=== PATIENT | female | born 1965 | race Caucasian/White ===

== ENCOUNTER → 2016-08-10 | Outpatient (CLI) | payer SELFPAY ==
[~2016-08-10] MED LIST: AMOXICILLIN500 MG PO; FLAGYL500 MG; LISINOPRIL AND1 TA1 PO; MOBIC7.5 MG PO; NKHM; TOBRAMYCIN OP
== END | disposition home or self-care (01) ==
LOC: RAD 10:27
DX: J44.9 Chronic obstructive pulmonary disease, unspecified (principal); R05 Cough; R09.89 Other specified symptoms and signs involving the circulatory and respiratory systems

== ENCOUNTER 2018-08-04 11:54 | Inpatient (IN) | payer OTHER ==
[~2018-08-04] VITALS: Ht 160 cm; Wt 78.2 kg
--- NOTE | ~2018-08-04 | DS ---
[place], [place] DISCHARGE SUMMARY [id number] #: [id number] ROOM: 406 DOCTOR: MARCOS LEPE MD BIRTHDATE: [birth year] DOS: 08/05/2018 DISCHARGE DIAGNOSES: 1. Normal cardiac stress test. 2. Benign essential hypertension. 3. Mixed hyperlipidemia. The patient presented to [facility] with 3 episodes of substernal chest pain and aching sensation without shortness of breath or any other symptoms. The patient was admitted and ruled out for acute myocardial infarction. Serial cardiac enzymes and finally taken for a cardiac stress test, which has been reported to be normal. The patient to be discharged to home to follow up with her PCP as an outpatient. Benign essential hypertension with normal blood pressures on lisinopril. Mixed hyperlipidemia, treated with atorvastatin. DISCHARGE MANAGEMENT: Hydrochlorothiazide 12.5 mg a day, lisinopril 10 mg a day, Lipitor 20 mg a day. Follow up with PCP within a week. MARCOS LEPE MD CM:DISCHARG [id number] MARCOS LEPE MD 08/05/18 1635 interface
--- NOTE | ~2018-08-04 | EKG ---
[place], [place] ELECTROCARDIOGRAM REPORT NAME: SAMANTHA THRASHER UNIT #: [id number] ROOM: 406 DOCTOR: DAVINA DRAFT REPORT BIRTHDATE: [birth year] [facility] Test Date: 2018-08-04 Test Time: 17:56:28 Pat Name: SAMANTHA THRASHER Department: Room: 406 Gender: F Tar Leveler: Norma Clarke : 1965 Requested By: JAYNE JEREZ Order Number: [id number] Reading MD: Aldo Chavarria MD Measurements Intervals [place] Rate: 84 P: 44 IA: 152 QRS: 31 QRSD: 88 T: 53 QT: 353 QTc: 418 Interpretive Statements Sinus rhythm Nonspecific ST T changes Electronically Signed On 08-05-2018 6:46:22 PST by Aldo Chavarria MD CM:EKGRPT:ELECTROCARDIOGRAM REPORT [id number] JAYNE DUMAS DRAFT REPORT JAYNE JEREZ DO
--- NOTE | ~2018-08-04 | EKG ---
[place], [place] ELECTROCARDIOGRAM REPORT NAME: SAMANTHA THRASHER UNIT #: [id number] ROOM: 406 DOCTOR: DAVINA DRAFT REPORT BIRTHDATE: [birth year] [facility] Test Date: 2018-08-04 Test Time: 11:57:16 Pat Name: SAMANTHA THRASHER Department: Room: 406 Gender: F Care Management Coordinator: : 1965 Requested By: JAYNE JEREZ Order Number: [id number] Reading MD: Aldo Chavarria MD Measurements Intervals [place] Rate: 84 P: 48 VT: 150 QRS: 24 QRSD: 91 T: 48 QT: 355 QTc: 420 Interpretive Statements Sinus rhythm Low voltage, precordial leads No previous ECG available for comparison Electronically Signed On 08-05-2018 6:44:59 PST by Aldo Chavarria MD CM:EKGRPT:ELECTROCARDIOGRAM REPORT [id number] JAYNE DUMAS DRAFT REPORT JAYNE JEREZ DO
--- NOTE | ~2018-08-04 | EKG ---
[place], [place] ELECTROCARDIOGRAM REPORT NAME: SAMANTHA THRASHER UNIT #: [id number] ROOM: 406 DOCTOR: DAVINA DRAFT REPORT BIRTHDATE: [birth year] [facility] Test Date: 2018-08-04 Test Time: 15:06:37 Pat Name: SAMANTHA THRASHER Department: Room: 406 Gender: F Information Management Officer: Norma Clarke : 1965 Requested By: JAYNE JEREZ Order Number: [id number] Reading MD: Aldo Chavarria MD Measurements Intervals [place] Rate: 77 P: 54 RI: 136 QRS: 31 QRSD: 91 T: 41 QT: 384 QTc: 435 Interpretive Statements Sinus rhythm Nonspecific ST T changes Electronically Signed On 08-05-2018 6:45:43 PST by Aldo Chavarria MD CM:EKGRPT:ELECTROCARDIOGRAM REPORT [id number] JAYNE DUMAS DRAFT REPORT JAYNE JEREZ DO
--- NOTE | ~2018-08-04 | WRIGHTHP ---
[place], [place] PATIENT HISTORY AND PHYSICAL EXAM [id number] UN[facility] #: [id number] ROOM: 406 DOCTOR: MARCOS LEPE MD BIRTHDATE: [birth year] DOS: 08/04/2018 HISTORY OF PRESENT ILLNESS: 1. The patient is a 53-year-old female with a past medical history of nicotine smoke dependence. 2. Hypertension. 3. Mixed hyperlipidemia. The patient presented to the Emergency Department with 3 recurrent episodes of substernal chest pain, which was aching in sensation and not accompanied by shortness of breath or nausea or diaphoresis. The episodes lasted about 15 minutes, so the patient took some aspirin, which helped with the pain and she came into the Emergency Department. The patient's cardiac enzymes were found to be negative initially and she was pain free and recommended for admission and further management. The patient seems to be feeling better and has no chest pains at present time. No dizziness or fainting episodes. No GI or urinary symptoms. REVIEW OF SYSTEMS: CARDIOVASCULAR: Recurrent complaints of chest pains, 3 episodes. GASTROINTESTINAL: No nausea, vomiting, diarrhea, constipation. LUNGS: No wheezing or shortness of breath, but the patient has history of smoking cigarettes. FAMILY HISTORY: Noncontributory. SOCIAL HISTORY: Smokes 1-1/2 pack of cigarettes a day for the last 30 years. Denies any alcohol or drug abuse. HOME MEDICATIONS: Lisinopril and Lipitor. ALLERGIES: No known drug allergies. PHYSICAL EXAMINATION: GENERAL: Alert, oriented x 3, in no visible distress. HEENT AND NECK: Extraocular movements are intact. Sclerae are anicteric. Oral mucosa is moist and clean. No obvious facial weakness. Neck is supple without any lymphadenopathy. No thyromegaly. No JVD. No carotid arterial bruits. LUNGS: Clear to auscultation. No wheezing. No rhonchi. CARDIOVASCULAR SYSTEM: Heart rate is regular in rate and rhythm. S1 and S2 normally audible. No significant murmur or any other abnormal cardiac sounds. ABDOMEN: Soft, nontender. No obvious organomegaly. Bowel sounds are present. No obvious herniation. EXTREMITIES: Without significant cyanosis or edema. Warm to touch. CENTRAL NERVOUS SYSTEM: Alert and oriented x 3. Cranial nerves II-XII are intact. Speech is normal. The patient is able to move all extremities. Normal muscle strength. Deep tendon reflexes are equal on both sides. Plantars were downgoing. IMPRESSION AND PLAN: 1. Chest pains from uncertain etiology. Two set of cardiac enzymes have been [place], [place] PATIENT HISTORY AND PHYSICAL EXAM NAME: SAMANTHA THRASHER UNIT #: [id number] ROOM: [facility] DOCTOR: MARCOS LEPE MD BIRTHDATE: [birth year] negative and if they are all negative, then I will take up for cardiac stress testing tomorrow for further evaluation. The patient has been given aspirin. 2. Mixed hyperlipidemia, treated appropriately with atorvastatin, which was continued. 3. Benign essential hypertension. Blood pressures are treated and controlled. The patient remains on lisinopril and hydrochlorothiazide. 4. Nicotine smoke dependence, 50 pack years of smoking. The patient has been encouraged to stop and bad effect of cigarette smoke on her health has been explained to her. MARCOS LEPE MD CM:HISPHYS:PATIENT HISTORY AND PHYSICAL EXAMINATION [phone] MARCOS LEPE MD 08/04/18 1828 interface
--- NOTE | ~2018-08-04 | ST ---
[place], [place] EXERCISE STRESS TEST REPORT NAME: SAMANTHA THRASHER UNIT #: [id number] ROOM: 406 DOCTOR: MARCOS LEPE MD BIRTHDATE: [birth year] DOS: 08/05/2018 TREADMILL TEST WITH CARDIOLITE REPORT The patient is a 53-year-old female weighing 172 pounds, admitted to [facility] for chest pains. Cardiac enzymes were negative. The patient was tested under standard Kirt protocol and she exercised for a total of 8 minutes and 30 seconds and the test was stopped because the patient had reached the targeted heart rate. Blood pressures ranged between 108/60 to 134/80, heart rate ranged between 60 beats per minute to 124 beats per minute. Baseline EKG showed normal sinus rhythm at the heart rate of 60 beats per minute, normal cardiac axis, no acute ST-T abnormality. Normal cardiac axis. During the exercise and recovery phase, the patient did not develop any significant EKG abnormality compatible with myocardial ischemia, no angina symptoms. No cardiac dysrhythmias. The patient was injected with Cardiolite once she reached 85% of the PMHR. IMPRESSION: Normal EKG part of the treadmill Cardiolite stress test at 85% PMHR. Cardiolite results will be reported by Cardiology later today. MARCOS LEPE MD CM:STRESS:EXERCISE STRESS TEST REPORT 2 MARCOS LEPE MD
[2018-08-04 11:56] VITALS: BP 136/74
[2018-08-04 12:17] LABS: BASO % 0.6 % (0.0-1.0); EOS # 0.1 10*3/uL (0.0-0.4); EOS % 1.5 % (1.0-4.0); HEMOGLOBIN 15.5 g/dl (12.0-16.0); LYMPH # 1.9 10*3/uL (1.3-4.4); LYMPH % 26.5 % (27.0-41.0); MEAN CELL VOLUME 93.4 fl (81.0-99.0); MEAN CORPUSCULAR HGB 32.2 pg (27.0-31.0); MEAN CORPUSCULAR HGB CONC 34.4 g/dl (33.0-37.0); MEAN PLATELET VOLUME 9.9 fl (9.6-12.3); MONO # 0.4 10*3/uL (0.1-1.0); MONO % 4.9 % (3.0-9.0); NEUT # 4.8 10*3/uL (2.3-7.9); NEUT % 66.2 % (47.0-73.0); PLATELET COUNT AUTOMATED 217 10*3/uL (130-400); RED BLOOD COUNT 4.82 10*6/uL (4.10-5.10); RED CELL DISTRI WIDTH 13.3 % (0-14.5); WHITE BLOOD COUNT 7.2 10*3/uL (4.8-10.8)
[2018-08-04] MEDS ORDERED: ZESTORETIC 10-1 EACH PO (12:17)
[2018-08-04] MEDS ORDERED: ATORVASTATIN CA20 M1 PO (12:17)
--- NOTE | 2018-08-04 12:27 | NUR ---
LACTIC ACID 2.4 CALLED CRITICAL AT THIS TIME.
[2018-08-04 12:31] LABS: ACT PARTIAL THROMBO TIME 26.7 SECONDS (20.8-31.5); INTERNATIONAL NORM RATIO 0.9 (2.0-3.5)
[2018-08-04 12:33] LABS: LIPASE 90 U/L (73-393)
[2018-08-04 12:35] LABS: ALBUMIN 3.5 gm/dl (3.1-4.5); ALKALINE PHOSPHATASE 85 U/L (45-117); BUN 8 mg/dl (7-24); CHLORIDE 105 mmol/L (98-107); CREATININE 0.58 mg/dL (0.55-1.02); POTASSIUM 3.4 mmol/L (3.5-5.1); SGOT/AST 19 IU/L (3-35); SGPT/ALT 36 U/L (12-78); SODIUM 139 mmol/L (136-145); TOTAL PROTEIN 7.4 gm/dL (6.4-8.2)
[2018-08-04 12:39] LABS: TROPONIN I < 0.015 ng/ml (<0.045)
--- NOTE | 2018-08-04 13:24 | NUR ---
PT W/O DISTRESS NOTED POSITIONED FOR COMFORT AND NO COMPLAINTS VOICED.
[2018-08-04 13:27] VITALS: BP 119/66
[2018-08-04 13:30] VITALS: BP 137/81
--- NOTE | 2018-08-04 13:30 | NUR ---
A 53, admitted to , under the services of Dr. SHERLEY SANDERSON,MARCOS Posadas with a diagnosis of CHEST PAIN, RULE OUT ACUTE WI. Chief complaint is CHEST PAIN. Patient arrived via bed from ER. Monitor applied. Initial assessment completed. Vital signs taken and recorded. DR. SHERLEY SANDERSON,MARCOS Posadas notified of admission to the unit. Orders received. See assessment for past medical history, medications and allergies. Patient and/or family oriented to unit. [facility] visitation policy reviewed. Clothing/patient valuable form completed. ASIF BARONE
--- NOTE | 2018-08-04 13:45 | NUR ---
MED REC UPDATED VIA PATIENT RECALL.
--- NOTE | 2018-08-04 14:38 | NUR ---
NEW ORDERS RECEIVED FROM DR LEPE
[2018-08-04 16:00] VITALS: BP 118/72
[2018-08-04 20:00] VITALS: BP 98/62
--- NOTE | 2018-08-04 20:15 | NUR ---
RESTING IN BED WITH NO DISTRESS NOTED. RESPIRATIONS EASY. LUNGS DIMINISHED, CLEAR PULSE OX 96% RA. NON-PRODUCTIVE SMOKERS COUGH. DENIES CHEST PAIN. CALL LIGHT WITHIN REACH. NO VOICED COMPLAINTS
--- NOTE | 2018-08-04 21:00 | NUR ---
24 HR chart check completed.
--- NOTE | 2018-08-04 21:00 | NUR ---
DR LEPE HERE TO SEE PATIENT AND DISCUSS PLAN OF CARE.
[2018-08-05] VITALS: BP 120/68
--- NOTE | 2018-08-05 | NUR ---
SLEEPING. NO DISTRESS NOTED. RESPIRATIONS EASY. VSS. CALL LIGHT WITHIN REACH.
--- NOTE | 2018-08-05 06:00 | NUR ---
SLEPT THROUGHOUT NIGHT WITH NO DISTRESS NOTED. RESPIRATIONS EASY. NO C/O CHEST PAIN. NPO STATUS MAINTAINED FOR STRESS TEST THIS AM. CALL LIGHT WITHIN REACH. NO VOICED COMPLAINTS THIS SHIFT
[2018-08-05 08:00] VITALS: BP 110/70
--- NOTE | 2018-08-05 08:45 | NUR ---
INFORMED SIGNED CONSENT OBTAINED FOR CGXT WITH DR LEPE. RESTING EKG NSR HR 60 BP 112/70 IN SUPINE POSITION, STANDING HR 66 BP 114/60. PT COMPLETED 8:30 OF A AMMON PROTOCOL WITH PT COMPLETING 2:30 OF STAGE III AT 3.4 MPH AND A 14% GRADE. NO ARRHYTHMIAS OR ST CHANGES NOTED. PT REACHED A PEAK HR OF 143 WHICH REPRESENTS 85% OF PREDICTED MAXIMUM AND A PEAK BP OF 132/70. TEST TERMINATED DUE TO FATIGUE. NO ARRHYTHMIAS OR ST CHANGES NOTED. LAST RECOVERY HR OF 96 BP 108/60. PT IN STABLE CONDITION AWAITING NUCLEAR IMAGES.
--- NOTE | 2018-08-05 09:00 | NUR ---
Release Of Information Specialist in to see patient. She is currently not in her room. Will follow up at a later time.
[2018-08-05 12:00] VITALS: BP 129/74
--- NOTE | 2018-08-05 13:50 | NUR ---
Fern Picker in to talk to patient. Patient states lives at home with her . There are 2 steps in the home. Physician: Dr. Pee Buenrostro [facility] services: none Patient's level of ADLs: INDEPENDENT Patient has working utilities: yes DME: none Follow-up physician's appointment after d/c: she prefers to make her own follow up appt after discharge Does patient want to access PORTAL?: no Discharge plan discussed with patient. She lives at home with her . She is independent in her ADLs and ambulation. Discussed home health care services and she denies any home needs at this time. When medically stable she will be discharged to home. BEATRICE LOUISE
--- NOTE | 2018-08-05 15:10 | NUR ---
[facility] Discharge instructions reviewed with patient/family. Patient receptive and verbalizes understanding. Follow-up care arranged. Written instructions given to patient/family. NATALIYA PANIAGUA
== END 2018-08-05 15:10 | disposition home or self-care (01) | DRG 313 ==
LOC: ED 11:54 → EDHOLD 13:01 → 4E 13:08
PROVIDERS: Emergency Medicine; ADMIT Internal Medicine
PROC: 4A02XM4 Measurement of Cardiac Total Activity, External Approach (ICD-10-PCS; principal; 2018-08-05)
DX: R07.9 Chest pain, unspecified (principal); I10 Essential (primary) hypertension; E78.2 Mixed hyperlipidemia; Z82.49 Family history of ischemic heart disease and other diseases of the circulatory system; Z83.3 Family history of diabetes mellitus; F17.210 Nicotine dependence, cigarettes, uncomplicated; E78.5 Hyperlipidemia, unspecified

== ENCOUNTER → 2018-08-14 | Outpatient (CLI) | payer BC ==
[~2018-08-14] MED LIST changes: +ATORVASTATIN CA20 M1 PO; +ZESTORETIC 10-1 EACH PO
== END | disposition home or self-care (01) ==
LOC: MAMMO 07:20
DX: Z12.31 Encounter for screening mammogram for malignant neoplasm of breast (principal)

== ENCOUNTER 2018-12-15 16:56 | Emergency (ER) | payer BC ==
[~2018-12-15] VITALS: Ht 160 cm; Wt 79.4 kg
[2018-12-15] MEDS ORDERED: CITALOPRAM HYDR10 MG PO (16:58)
[2018-12-15 17:16] LABS: BASO % 0.3 % (0.0-1.0); EOS # 0.1 10*3/uL (0.0-0.4); HEMATOCRIT 44.3 % (37.0-47.0); HEMOGLOBIN 15.4 g/dl (12.0-16.0); LYMPH # 1.2 10*3/uL (1.3-4.4); LYMPH % 19.3 % (27.0-41.0); MEAN CELL VOLUME 93.7 fl (81.0-99.0); MEAN CORPUSCULAR HGB 32.6 pg (27.0-31.0); MEAN CORPUSCULAR HGB CONC 34.8 g/dl (33.0-37.0); MEAN PLATELET VOLUME 9.8 fl (9.6-12.3); MONO # 0.6 10*3/uL (0.1-1.0); MONO % 10.3 % (3.0-9.0); NEUT # 4.3 10*3/uL (2.3-7.9); NEUT % 68.8 % (47.0-73.0); PLATELET COUNT AUTOMATED 170 10*3/uL (130-400); RED BLOOD COUNT 4.73 10*6/uL (4.10-5.10); RED CELL DISTRI WIDTH 13.8 % (0-14.5); WHITE BLOOD COUNT 6.2 10*3/uL (4.8-10.8)
[2018-12-15 17:32] LABS: ALBUMIN 3.6 gm/dl (3.1-4.5); ALKALINE PHOSPHATASE 83 U/L (45-117); BUN 8 mg/dl (7-24); CHLORIDE 107 mmol/L (98-107); CREATININE 0.58 mg/dL (0.55-1.02); LIPASE 87 U/L (73-393); POTASSIUM 3.4 mmol/L (3.5-5.1); SGOT/AST 17 IU/L (3-35); SGPT/ALT 26 U/L (12-78); SODIUM 140 mmol/L (136-145); TOTAL PROTEIN 7.3 gm/dL (6.4-8.2)
[2018-12-15 17:37] LABS: BILIRUBIN NEGATIVE (NEGATIVE); BLOOD 2+ (NEGATIVE); CLARITY CLEAR (CLEAR); COLOR YELLOW (YELLOW); GLUCOSE NEGATIVE (NEGATIVE); KETONE NEGATIVE (NEGATIVE); LEUKO ESTERASE NEGATIVE (NEGATIVE); NITRITE NEGATIVE (NEGATIVE); SPECIFIC GRAVITY <= 1.005 (1.005-1.030); UROBILINOGEN 0.2 E.U./dl (0.2-1.0)
[2018-12-15 17:48] LABS: BACTERIA 1+; WBC 0-2 wbc/hpf (0-5)
== END 2018-12-15 18:11 | disposition home or self-care (01) ==
LOC: ED 16:56
PROVIDERS: Nurse Practitioner Family
DX: B34.9 Viral infection, unspecified (principal); R19.7 Diarrhea, unspecified; R03.0 Elevated blood-pressure reading, without diagnosis of hypertension; F17.200 Nicotine dependence, unspecified, uncomplicated; Z79.899 Other long term (current) drug therapy

== ENCOUNTER → 2018-12-27 | Outpatient (CLI) | payer BC ==
[~2018-12-27] MED LIST changes: +CITALOPRAM HYDR10 MG PO
[2018-12-27 08:12] LABS: ALBUMIN 3.8 gm/dl (3.1-4.5); ALKALINE PHOSPHATASE 93 U/L (45-117); BUN 9 mg/dl (7-24); CHLORIDE 103 mmol/L (98-107); CHOLESTEROL 198 mg/dL (<200); CPK 57 U/L (26-192); CREATININE 0.57 mg/dL (0.55-1.02); HDL CHOLESTEROL 47 mg/dl (40-60); LDL CHOLESTEROL 115 mg/dL (9-159); POTASSIUM 3.4 mmol/L (3.5-5.1); SGOT/AST 23 IU/L (3-35); SGPT/ALT 25 U/L (12-78); SODIUM 138 mmol/L (136-145); TOTAL PROTEIN 7.4 gm/dL (6.4-8.2); TRIGLYCERIDES 180 mg/dl (<150); VLDL CHOLESTEROL 36 mg/dL (6-40)
== END | disposition home or self-care (01) ==
LOC: LAB 06:20
PROVIDERS: Family Medicine
DX: E78.00 Pure hypercholesterolemia, unspecified (principal); I10 Essential (primary) hypertension; E55.9 Vitamin D deficiency, unspecified

== ENCOUNTER 2019-04-20 09:35 | Emergency (ER) | payer BC ==
[~2019-04-20] VITALS: Ht 160 cm; Wt 86.2 kg
[2019-04-20] MEDS ORDERED: NAPROSYN500 MG PO (11:12)
== END 2019-04-20 11:28 | disposition home or self-care (01) ==
LOC: ED 09:35
DX: S70.01XA Contusion of right hip, initial encounter (principal); Z79.899 Other long term (current) drug therapy; W19.XXXA Unspecified fall, initial encounter; Y93.89 Activity, other specified; Y92.89 Other specified places as the place of occurrence of the external cause; Y99.8 Other external cause status

== ENCOUNTER → 2019-06-25 | Outpatient (CLI) | payer BC ==
[~2019-06-25] MED LIST changes: +NAPROSYN500 MG PO
[2019-06-25 08:14] LABS: HEMATOCRIT 40.8 % (37.0-47.0); HEMOGLOBIN 13.8 g/dl (12.0-16.0); MEAN CELL VOLUME 95.1 fl (81.0-99.0); MEAN CORPUSCULAR HGB 32.2 pg (27.0-31.0); MEAN CORPUSCULAR HGB CONC 33.8 g/dl (33.0-37.0); MEAN PLATELET VOLUME 9.8 fl (9.6-12.3); RED BLOOD COUNT 4.29 10*6/uL (4.10-5.10); RED CELL DISTRI WIDTH 13.9 % (0-14.5); WHITE BLOOD COUNT 5.6 10*3/uL (4.8-10.8)
[2019-06-25 08:48] LABS: ALBUMIN 3.8 gm/dl (3.1-4.5); ALKALINE PHOSPHATASE 70 U/L (45-117); BUN 12 mg/dl (7-24); CHLORIDE 109 mmol/L (98-107); CHOLESTEROL 227 mg/dL (<200); CREATININE 0.51 mg/dL (0.55-1.02); HDL CHOLESTEROL 54 mg/dl (40-60); LDL CHOLESTEROL 151 mg/dL (9-159); POTASSIUM 3.7 mmol/L (3.5-5.1); SGOT/AST 23 IU/L (3-35); SGPT/ALT 31 U/L (12-78); SODIUM 139 mmol/L (136-145); TOTAL PROTEIN 7.3 gm/dL (6.4-8.2); TRIGLYCERIDES 110 mg/dl (<150); VLDL CHOLESTEROL 22 mg/dL (6-40)
== END | disposition home or self-care (01) ==
LOC: LAB 07:43
PROVIDERS: Family Medicine
DX: E78.00 Pure hypercholesterolemia, unspecified (principal); I10 Essential (primary) hypertension; E55.9 Vitamin D deficiency, unspecified; M19.90 Unspecified osteoarthritis, unspecified site

== ENCOUNTER 2019-08-11 06:50 | Emergency (ER) | payer BC ==
[~2019-08-11] VITALS: Ht 160 cm; Wt 90.7 kg
[2019-08-11] MEDS ORDERED: TAMIFLU 75MG CA75 MG PO (08:04)
== END 2019-08-11 08:13 | disposition home or self-care (01) ==
LOC: ED 06:50
DX: J10.1 Influenza due to other identified influenza virus with other respiratory manifestations (principal); I10 Essential (primary) hypertension; F17.200 Nicotine dependence, unspecified, uncomplicated; Z79.899 Other long term (current) drug therapy

== ENCOUNTER 2019-08-18 06:16 | Emergency (ER) | payer OTHER, BC ==
[~2019-08-18] VITALS: Ht 160 cm; Wt 90.7 kg
[~2019-08-18 06:16] MED LIST changes: +TAMIFLU 75MG CA75 MG PO
== END 2019-08-18 07:45 | disposition home or self-care (01) ==
LOC: ED 06:16
DX: S00.01XA Abrasion of scalp, initial encounter (principal); I10 Essential (primary) hypertension; Z79.899 Other long term (current) drug therapy; W22.8XXA Striking against or struck by other objects, initial encounter; Y93.89 Activity, other specified; Y92.89 Other specified places as the place of occurrence of the external cause; Y99.0 Civilian activity done for income or pay

== ENCOUNTER → 2019-10-01 | Outpatient (CLI) | payer BC ==
[2019-10-01 07:22] LABS: CHLORIDE 109 mmol/L (98-107); POTASSIUM 3.7 mmol/L (3.5-5.1); SODIUM 141 mmol/L (136-145)
[2019-10-01 07:35] LABS: ALBUMIN 3.4 gm/dl (3.1-4.5); ALKALINE PHOSPHATASE 78 U/L (45-117); BUN 18 mg/dl (7-24); CHOLESTEROL 159 mg/dL (<200); CPK 57 U/L (26-192); CREATININE 0.64 mg/dL (0.55-1.02); HDL CHOLESTEROL 43 mg/dl (40-60); LDL CHOLESTEROL 88 mg/dL (9-159); SGOT/AST 19 IU/L (3-35); SGPT/ALT 31 U/L (12-78); TOTAL PROTEIN 6.4 gm/dL (6.4-8.2); TRIGLYCERIDES 138 mg/dl (<150); VLDL CHOLESTEROL 28 mg/dL (6-40)
== END | disposition home or self-care (01) ==
LOC: LAB 06:11
PROVIDERS: Family Medicine
DX: E78.00 Pure hypercholesterolemia, unspecified (principal); I10 Essential (primary) hypertension

== ENCOUNTER → 2019-12-17 | Outpatient (CLI) | payer SELFPAY | END | disposition home or self-care (01) | LOC: MAMMO 10-30 09:30 | DX: Z12.31 Encounter for screening mammogram for malignant neoplasm of breast (principal) ==

== ENCOUNTER → 2020-03-09 | Outpatient (CLI) | payer BC | END | disposition home or self-care (01) | LOC: COVID19 00:15 | DX: Z20.828 Contact with and (suspected) exposure to other viral communicable diseases (principal); R51 Headache; R50.9 Fever, unspecified ==

== ENCOUNTER → 2022-03-27 | Outpatient (CLI) | payer SELFPAY ==
[2022-03-27 11:34] LABS: HEMATOCRIT 46.2 % (37.0-47.0); MEAN CELL VOLUME 91.3 fl (81.0-99.0); MEAN CORPUSCULAR HGB 31.2 pg (27.0-31.0); MEAN CORPUSCULAR HGB CONC 34.2 g/dl (33.0-37.0); MEAN PLATELET VOLUME 10.1 fl (9.6-12.3); RED BLOOD COUNT 5.06 10*6/uL (4.10-5.10); RED CELL DISTRI WIDTH 13.8 % (0-14.5); WHITE BLOOD COUNT 7.7 10*3/uL (4.8-10.8)
[2022-03-27 13:18] LABS: BUN 11 mg/dl (7-24); CHLORIDE 103 mmol/L (98-107); POTASSIUM 3.6 mmol/L (3.5-5.1); SODIUM 138 mmol/L (136-145)
[2022-03-27 13:22] LABS: ALKALINE PHOSPHATASE 96 U/L (45-117); CREATININE 0.58 mg/dL (0.55-1.02); SGOT/AST 13 IU/L (3-35); SGPT/ALT 37 U/L (12-78); TOTAL PROTEIN 7.5 gm/dL (6.4-8.2)
== END | disposition home or self-care (01) ==
LOC: LAB 11:05
PROVIDERS: ATTEND Family Medicine
DX: I10 Essential (primary) hypertension (principal); R60.9 Edema, unspecified

== ENCOUNTER 2024-07-24 10:46 | Inpatient (IN) | payer SELFPAY ==
[~2024-07-24] VITALS: Ht 160 cm; Wt 99.8 kg
[2024-07-24 11:05] VITALS: BP 151/93
[2024-07-24] MEDS ORDERED: FUROSEMIDE40 MG PO (11:07)
[2024-07-24] MEDS ORDERED: ZESTORETIC 20-1 EACH PO (11:08)
[2024-07-24 11:45] LABS: BASO % 0.4 % (0.0-1.0); EOS # 0.1 10*3/uL (0.0-0.4); EOS % 1.2 % (1.0-4.0); HEMATOCRIT 48.5 % (37.0-47.0); MEAN CELL VOLUME 90.8 fl (81.0-99.0); MEAN CORPUSCULAR HGB 31.3 pg (27.0-31.0); MEAN CORPUSCULAR HGB CONC 34.4 g/dl (33.0-37.0); MEAN PLATELET VOLUME 11.2 fl (9.6-12.3); MONO # 0.6 10*3/uL (0.1-1.0); MONO % 7.4 % (3.0-9.0); NEUT # 4.8 10*3/uL (2.3-7.9); NEUT % 63.1 % (47.0-73.0); PLATELET COUNT AUTOMATED 189 10*3/uL (130-400); RED BLOOD COUNT 5.34 10*6/uL (4.10-5.10); RED CELL DISTRI WIDTH 13.2 % (0-14.5); WHITE BLOOD COUNT 7.7 10*3/uL (4.8-10.8)
[2024-07-24 12:06] LABS: ALKALINE PHOSPHATASE 150 U/L (46-116); BUN 8 mg/dl (9-23); CHLORIDE 103 mmol/L (98-107); POTASSIUM 3.1 mmol/L (3.4-5.1); SGPT/ALT 90 U/L (5-49); TOTAL PROTEIN 6.4 gm/dL (6.0-8.0)
[2024-07-24] MEDS ORDERED: IOHEXOL 350 MG/ML 100 ML VIAL IV ONE (12:20)
[2024-07-24] MEDS ORDERED: SODIUM CHLORIDE 0.9% 100 ML BAG IV ONE (12:20)
[2024-07-24 13:40] VITALS: BP 137/95
[2024-07-24] MEDS ORDERED: FUROSEMIDE 20 MG/2 ML VIAL IV ONE (13:40)
[2024-07-24] MEDS ORDERED: POTASSIUM CHLORIDE 20 MEQ TAB PO ONE (13:40)
[2024-07-24 15:20] VITALS: BP 128/88
[2024-07-24] MEDS ORDERED: DEXTROSE 10 % IN WATER 250 ML IV PRN (15:25)
[2024-07-24 16:00] VITALS: BP 120/76
[2024-07-24] MEDS ORDERED: INSULIN REGULAR, HUMAN 1 UNIT/0.01 ML SC SCH (16:30)
[2024-07-24] MEDS ORDERED: FUROSEMIDE 40 MG TAB PO SCH (18:00)
[2024-07-24 20:00] VITALS: BP 115/90
[2024-07-25] VITALS: BP 123/87
[2024-07-25 06:56] LABS: BUN 11 mg/dl (9-23); CHLORIDE 103 mmol/L (98-107); CHOLESTEROL 179 mg/dL (<200); LDL CHOLESTEROL 95 mg/dL (9-159); POTASSIUM 2.9 mmol/L (3.4-5.1); TRIGLYCERIDES 246 mg/dl (<150)
[2024-07-25 08:00] VITALS: BP 112/74
[2024-07-25] MEDS ORDERED: POTASSIUM CHLORIDE 20 MEQ TAB PO SCH ×2 (08:05→12:00)
[2024-07-25] MEDS ORDERED: Regadenoson 0.4 MG/5 ML SYR IV ONE (08:43)
[2024-07-25] MEDS ORDERED: EMPAGLIFLOZIN 10 MG TABLET PO SCH (10:00)
[2024-07-25] MEDS ORDERED: METOPROLOL SUCCINATE XR 25 MG TAB PO SCH (10:00)
[2024-07-25] MEDS ORDERED: FUROSEMIDE 40 MG/4 ML VIAL IV SCH (10:00)
[2024-07-25] MEDS ORDERED: FUROSEMIDE 20 MG/2 ML VIAL IV SCH (10:00)
[2024-07-25] MEDS ORDERED: ATORVASTATIN CALCIUM 40 MG TABLET PO SCH (10:00)
[2024-07-25] MEDS ORDERED: POTASSIUM CHLORIDE 10 MEQ TAB PO SCH (10:00)
[2024-07-25] MEDS ORDERED: LISINOPRIL 20 MG TAB PO SCH (10:00)
[2024-07-25] MEDS ORDERED: FUROSEMIDE 40 MG IV SCH (10:00)
[2024-07-25 11:07] LABS: HEMOGOLBIN A1C >15.5 % (4.8-5.6)
[2024-07-25 12:00] VITALS: BP 117/80
[2024-07-25] MEDS ORDERED: ASPIRIN ENTERIC COATED 81 MG TAB PO SCH (15:10)
[2024-07-25] MEDS ORDERED: SPIRONOLACTONE 25 MG TAB PO SCH (15:10)
[2024-07-25 16:00] VITALS: BP 105/64
[2024-07-25 20:00] VITALS: BP 97/62
[2024-07-25 21:07] VITALS: BP 101/70
[2024-07-26] VITALS: BP 97/66
[2024-07-26 00:34] VITALS: BP 104/58
[2024-07-26 06:27] LABS: BASO # 0.1 10*3/uL (0.0-0.1); BASO % 0.7 % (0.0-1.0); EOS # 0.2 10*3/uL (0.0-0.4); EOS % 2.2 % (1.0-4.0); HEMATOCRIT 49.3 % (37.0-47.0); MEAN CELL VOLUME 92.7 fl (81.0-99.0); MEAN CORPUSCULAR HGB CONC 33.5 g/dl (33.0-37.0); MEAN PLATELET VOLUME 11.7 fl (9.6-12.3); MONO # 0.5 10*3/uL (0.1-1.0); MONO % 7.3 % (3.0-9.0); NEUT # 3.7 10*3/uL (2.3-7.9); NEUT % 53.3 % (47.0-73.0); PLATELET COUNT AUTOMATED 206 10*3/uL (130-400); RED BLOOD COUNT 5.32 10*6/uL (4.10-5.10); RED CELL DISTRI WIDTH 13.5 % (0-14.5); WHITE BLOOD COUNT 6.9 10*3/uL (4.8-10.8)
[2024-07-26 06:33] LABS: BUN 15 mg/dl (9-23); CHLORIDE 106 mmol/L (98-107)
[2024-07-26 06:40] LABS: POTASSIUM 3.9 mmol/L (3.4-5.1)
[2024-07-26 08:00] VITALS: BP 123/70
[2024-07-26 12:00] VITALS: BP 124/73
[2024-07-26 16:00] VITALS: BP 109/70
[2024-07-26 20:00] VITALS: BP 105/75
[2024-07-27] VITALS: BP 105/75
[2024-07-27 06:34] LABS: BASO # 0.1 10*3/uL (0.0-0.1); BASO % 0.7 % (0.0-1.0); EOS # 0.1 10*3/uL (0.0-0.4); EOS % 1.8 % (1.0-4.0); HEMATOCRIT 47.8 % (37.0-47.0); MEAN CELL VOLUME 94.3 fl (81.0-99.0); MEAN CORPUSCULAR HGB 31.4 pg (27.0-31.0); MEAN CORPUSCULAR HGB CONC 33.3 g/dl (33.0-37.0); MEAN PLATELET VOLUME 11.6 fl (9.6-12.3); MONO # 0.6 10*3/uL (0.1-1.0); MONO % 7.7 % (3.0-9.0); NEUT # 4.1 10*3/uL (2.3-7.9); NEUT % 56.7 % (47.0-73.0); PLATELET COUNT AUTOMATED 189 10*3/uL (130-400); RED BLOOD COUNT 5.07 10*6/uL (4.10-5.10); RED CELL DISTRI WIDTH 13.7 % (0-14.5); WHITE BLOOD COUNT 7.3 10*3/uL (4.8-10.8)
[2024-07-27 06:35] LABS: BUN 16 mg/dl (9-23); CHLORIDE 106 mmol/L (98-107); POTASSIUM 3.9 mmol/L (3.4-5.1)
[2024-07-27 08:00] VITALS: BP 106/73
[2024-07-27] MEDS ORDERED: SACUBITRIL/VALSARTAN 24 MG-26 MG TABLET PO SCH (10:00)
[2024-07-27 12:00] VITALS: BP 107/66
[2024-07-27 16:00] VITALS: BP 87/50
[2024-07-27] MEDS ORDERED: METFORMIN HYDROCHLORIDE PO SCH (16:30)
[2024-07-27] MEDS ORDERED: Melatonin 5 MG TABLET PO PRN (16:40)
[2024-07-27 20:00] VITALS: BP 107/72
[2024-07-27] MEDS ORDERED: OMEPRAZOLE 20 MG CAP PO ONE (21:55)
[2024-07-28] VITALS: BP 110/68
== END 2024-07-28 05:32 | disposition short-term general hospital (02) | DRG 291 ==
LOC: ED 10:46 → 4E 14:46 → EDHOLD 14:46 → 4E 15:43
PROVIDERS: Nurse Practitioner Family; ADMIT Internal Medicine; ATTEND Internal Medicine
DX: I11.0 Hypertensive heart disease with heart failure (principal); I50.43 Acute on chronic combined systolic (congestive) and diastolic (congestive) heart failure; Z68.41 Body mass index [BMI] 40.0-44.9, adult; E87.6 Hypokalemia; E66.01 Morbid (severe) obesity due to excess calories; D75.1 Secondary polycythemia; G47.33 Obstructive sleep apnea (adult) (pediatric); I44.7 Left bundle-branch block, unspecified; E11.9 Type 2 diabetes mellitus without complications; R74.01 Elevation of levels of liver transaminase levels; F32.A Depression, unspecified; Z79.899 Other long term (current) drug therapy; Z79.01 Long term (current) use of anticoagulants; Z79.2 Long term (current) use of antibiotics; Z82.49 Family history of ischemic heart disease and other diseases of the circulatory system; Z83.3 Family history of diabetes mellitus; Z87.891 Personal history of nicotine dependence

== ENCOUNTER → 2024-08-18 | Outpatient (CLI) | payer SELFPAY ==
[~2024-08-18] MED LIST changes: +FUROSEMIDE40 MG PO; +ZESTORETIC 20-1 EACH PO
== END | disposition home or self-care (01) ==
LOC: RESCLI 14:17
PROVIDERS: ATTEND Family Medicine
DX: I11.0 Hypertensive heart disease with heart failure (principal); I50.20 Unspecified systolic (congestive) heart failure; E11.9 Type 2 diabetes mellitus without complications; E66.01 Morbid (severe) obesity due to excess calories; E78.00 Pure hypercholesterolemia, unspecified; Z98.890 Other specified postprocedural states; Z79.82 Long term (current) use of aspirin; Z79.84 Long term (current) use of oral hypoglycemic drugs; Z82.49 Family history of ischemic heart disease and other diseases of the circulatory system; Z68.34 Body mass index [BMI] 34.0-34.9, adult

== ENCOUNTER → 2024-09-08 | Outpatient (CLI) | payer OTHER | END | disposition home or self-care (01) | LOC: RESCLI 15:49 | PROVIDERS: ATTEND Internal Medicine | DX: I50.20 Unspecified systolic (congestive) heart failure (principal); E11.9 Type 2 diabetes mellitus without complications; Z12.39 Encounter for other screening for malignant neoplasm of breast; Z79.82 Long term (current) use of aspirin; Z79.899 Other long term (current) drug therapy; Z98.890 Other specified postprocedural states ==

== ENCOUNTER → 2024-11-24 | Outpatient (CLI) | payer OTHER | END | disposition home or self-care (01) | LOC: RESCLI 01:50 | PROVIDERS: ATTEND Internal Medicine | DX: I50.20 Unspecified systolic (congestive) heart failure (principal); E11.9 Type 2 diabetes mellitus without complications; E78.5 Hyperlipidemia, unspecified; Z72.0 Tobacco use ==

== ENCOUNTER → 2025-02-14 | Outpatient (CLI) | payer OTHER ==
[2025-02-14 08:23] LABS: BASO # 0.0 10*3/uL (0.0-0.1); BASO % 0.4 % (0.0-1.0); EOS # 0.1 10*3/uL (0.0-0.4); EOS % 1.5 % (1.0-4.0); MEAN CELL VOLUME 93.9 fl (81.0-99.0); MEAN CORPUSCULAR HGB 30.9 pg (27.0-31.0); MEAN PLATELET VOLUME 9.6 fl (9.6-12.3); MONO # 0.6 10*3/uL (0.1-1.0); MONO % 6.1 % (3.0-9.0); NEUT # 6.0 10*3/uL (2.3-7.9); NEUT % 62.5 % (47.0-73.0); NUCLEATED RED BLOOD CELL 0.0 % (0.0-0.0); NUCLEATED RED BLOOD CELL 0.0 10*3/uL (0.0-0.0); PLATELET COUNT AUTOMATED 234 10*3/uL (130-400); RED CELL DISTRI WIDTH 12.6 % (0-14.5)
[2025-02-14 09:09] LABS: BUN 15 mg/dl (9-23); SGPT/ALT 21 U/L (5-49)
== END | disposition home or self-care (01) ==
LOC: LAB 06:26
PROVIDERS: ATTEND Internal Medicine Clinical Cardiac Electrophysiology
DX: I49.9 Cardiac arrhythmia, unspecified (principal)